=== PATIENT | female | born 1965 | race Caucasian/White ===

== ENCOUNTER 2017-06-09 16:44 | Emergency (ER) | payer OTHER, BC ==
[2017-06-09 16:50] VITALS: BP 134/95; PULSE 67; TEMP 98; BMI 29.7
[2017-06-09] MEDS ORDERED: hydrOXYzine PAMOATE 25 MG CAPSULE (FP) PO ONE ×2 (17:43→17:54)
[2017-06-09] MEDS ORDERED: KETOROLAC TROMETHAMINE 60 MG/2 ML VIAL IM ONE (17:43)
--- NOTE | 2017-06-09 17:44 | PDOC ---
History of Present Illness - General History Source: Patient Exam Limitations: No Limitations - History of Present Illness Initial Comments: 06/09/17 17:47 52 y/o F with a PMHx of thyroidectomy, hysterectomy presents to the ED with sharp low back pain today. Patient was at work and bent over to pick something up. She subsequently experienced sharp pain in her lower back. She took Advil with no relief. She denies similar pain in the past. She denies numbness, tingling. No other complaints. <Coby Thompson - Last Filed: 06/09/17 17:47> <Scottie Reynoso - Last Filed: 06/10/17 08:06> - General Chief Complaint: Pain, Acute Stated Complaint: low back pain Time Seen by Provider: 06/09/17 17:32 Past History <Coby Thompson - Last Filed: 06/09/17 17:47> - Past Medical History Thyroid Disease: Yes - Psycho/Social/Smoking Cessation Hx Anxiety: No Suicidal Ideation: No Smoking History: Never smoked Hx Alcohol Use: Yes Drug/Substance Use Hx: No Substance Use Type: Alcohol <Scottie Reynoso - Last Filed: 06/10/17 08:06> - Past Medical History Allergies/Adverse Reactions: Allergies Allergy/AdvReac Type Severity Reaction Status Date / Time No Known Allergies Allergy Unverified 06/09/17 16:46 Home Medications: Ambulatory Orders Cyclobenzaprine HCl [Flexeril] 10 mg PO TID #15 tablet 06/09/17 Escitalopram Oxalate [Lexapro -] 5 mg PO DAILY 06/09/17 Ketorolac Tromethamine [Toradol] 10 mg PO Q6H #20 tablet 06/09/17 Levothyroxine Sodium [Synthroid] 0 mcg PO DAILY 06/09/17 Review of Systems - Review of Systems Comments:: 06/09/17 17:48 CONSTITUTIONAL: Absent: fever, chills, fatigue EYES: Absent: visual changes ENT: Absent: ear pain, sore throat CARDIOVASCULAR: Absent: chest pain, palpitations RESPIRATORY: Absent: cough, SOB GI: Absent: abdominal pain, nausea, vomiting, constipation, diarrhea GENITOURINARY: Absent: dysuria, frequency, hematuria MUSCULOSKELETAL: (+) low back pain. Absent: arthralgia, myalgia SKIN: Absent: rash NEURO: Absent: headache <Coby Thompson - Last Filed: 06/09/17 17:47> *Physical Exam - Vital Signs Last Vital Signs Temp Pulse Resp BP Pulse Ox 98 F 67 18 134/95 98 06/09/17 16:45 06/09/17 16:45 06/09/17 16:45 06/09/17 16:45 06/09/17 16:45 - Physical Exam Comments: 06/09/17 17:48 BACK: paravertebral spasms bilateral at lumbosacral spine. No deformity. No visible or palpable inflammation. Straight leg raising negative. No distal sensory or motor deficit. Pulses full and symmetric. <Coby Thompson - Last Filed: 06/09/17 17:47> - Vital Signs Last Vital Signs Temp Pulse Resp BP Pulse Ox 98 F 67 18 134/95 98 06/09/17 16:45 06/09/17 16:45 06/09/17 16:45 06/09/17 16:45 06/09/17 16:45 <Scottie Reynoso - Last Filed: 06/10/17 08:06> Medical Decision Making - Medical Decision Making Patient much improved after medication. Pain has subsided and the patient is moving much more freely. Fully ambulatory and in minimal distress upon discharge with her , to follow-up as directed. <Scottie Reynoso - Last Filed: 06/10/17 08:06> *DC/Admit/Observation/Transfer - Attestations Scribe Attestion: 06/09/17 17:48 Documentation prepared by Coby Thompson, acting as manager medical writing for Scottie Miller MD. <Coby Thompson - Last Filed: 06/09/17 17:47> - Discharge Dispostion Admit: No <Scottie Reynoso - Last Filed: 06/10/17 08:06> Diagnosis at time of Disposition: Low back strain Qualifiers: Encounter type: initial encounter Qualified Code(s): S39.012A - Strain of muscle, fascia and tendon of lower back, initial encounter - Discharge Dispostion Condition at time of disposition: Stable - Prescriptions Prescriptions: Cyclobenzaprine HCl [Flexeril] 10 mg PO TID #15 tablet Ketorolac Tromethamine [Toradol] 10 mg PO Q6H #20 tablet - Referrals Referrals: Damián Huffman MD [Staff Physician] - 1 week - Patient Instructions Printed Discharge Instructions: DI for Low Back Pain - Post Discharge Activity Work/School Note: Back to Work
[2017-06-09] MEDS ORDERED: KETOROLAC TROMETHAMINE 60 MG/2 ML VIAL ONE (17:54)
== END 2017-06-09 18:38 ==
LOC: FER 16:44
CPT/HCPCS: 99282-25

== ENCOUNTER 2018-02-01 20:46 | Emergency (ER) | payer OTHER ==
[2018-02-01] MEDS ORDERED: ASPIRIN 81 MG CHEWABLE TABLETS PO ONE (21:00)
--- NOTE | 2018-02-01 21:00 | PDOC ---
Rapid Medical Evaluation Time Seen by Provider: 02/01/18 20:58 Medical Evaluation: Allergies Allergy/AdvReac Type Severity Reaction Status Date / Time No Known Allergies Allergy Unverified 06/09/17 16:46 02/01/18 20:59 I have performed a brief in-person evaluation of this patient. The patient presents with a chief complaint of: midsternal chest pain radiating to back since 5 pm today, put on norvasc 2 weeks, +palpitations, denies sob, swelling to legs Pertinent physical exam findings: well appearing, lungs ctab I have ordered the following: cardiac workup The patient will proceed to the ED for further evaluation. Discharge Disposition - Diagnosis Chest pain - Referrals - Patient Instructions - Post Discharge Activity
[2018-02-01 21:05] VITALS: BP 151/89; PULSE 85; TEMP 98.2; BMI 30.1
[2018-02-01] MEDS ORDERED: ASPIRIN 81 MG CHEWABLE TABLETS ONE (21:53)
[2018-02-01 22:33] LABS: BASO % 0.9 % (0-2.0); EOS % 6.1 % (0-4.5); HEMATOCRIT 37.8 % (32.4-45.2); HEMOGLOBIN 12.7 GM/dL (10.7-15.3); LYMPH % 24.9 % (8-40); MCH 29.5 pg (25.7-33.7); MCHC 33.7 g/dl (32.0-36.0); MEAN CELL VOLUME 87.4 fl (80-96); MEAN PLT VOLUME 8.1 fl (7.5-11.1); MONO % 8.4 % (3.8-10.2); NEUT % 59.7 % (42.8-82.8); PLATELET COUNT 311 K/MM3 (134-434); RBC 4.32 M/mm3 (3.60-5.2); RDW 14.4 % (11.6-15.6); WHITE BLOOD COUNT 7.2 K/mm3 (4.0-10.0)
[2018-02-01 22:43] LABS: INR 1.09 (0.82-1.09); PROTHROMBIN TIME (PATIENT) 12.3 SEC (9.98-11.88)
[2018-02-01 22:54] LABS: ALBUMIN 3.9 g/dl (3.4-5.0); ANION GAP 10 (8-16); BILIRUBIN,TOTAL 0.3 mg/dL (0.2-1.0); BLOOD UREA NITROGEN 16 mg/dL (7-18); CALCIUM 9.1 mg/dL (8.5-10.1); CHLORIDE 108 mmol/L (98-107); CO2 26 mmol/L (21-32); GLUCOSE,RANDOM 122 mg/dL (74-106); MAGNESIUM 2.1 mg/dL (1.8-2.4); POTASSIUM 3.9 mmol/L (3.5-5.1); SGOT/AST 49 U/L (15-37); SGPT/ALT 120 U/L (12-78); SODIUM 144 mmol/L (136-145); TOT PROT 8.7 g/dl (6.4-8.2)
[2018-02-01 22:57] LABS: ALK PHOS 178 U/L (45-117)
--- NOTE | 2018-02-02 02:09 | PDOC ---
History of Present Illness - General Chief Complaint: Pain Stated Complaint: CHEST PAIN Time Seen by Provider: 02/01/18 20:58 History Source: Patient Exam Limitations: No Limitations - History of Present Illness Initial Comments: CHIEF COMPLAINT: 52 y/o afebrile female with PMH HTN, TB (treated as a child), elevated liver enzymes (chronic with family hx of fatty liver) c/o chest pain radiating to her back today. HISTORY OF PRESENT ILLNESS: The patient states the pain came on suddenly, felt like pressure in her anterior chest and sharp pain in her back between her shoulder blades. She states the chest pain has subsided but she still has the back pain. She denies f/c, n/v/d, FLORES, cough, runny nose, SOB, jaw pain, left arm pain, abd pain, hematuria, recent travel, smoking history. She took 1 aspirin prior to coming to the ER. SHe informs me that she had a CXR done a few weeks ago which showed "something weird in the left lower lobe" and was given an RX for a CT scan of her chest but her insurance hasn't approved the scan yet. Vital signs on arrival are within normal limits. REVIEW OF SYSTEMS: GENERAL/CONSTITUTIONAL: No fever/chills. No weakness. No weight change. HEAD, EYES, EARS, NOSE AND THROAT: No change in vision. No ear pain or discharge. No sore throat. CARDIOVASCULAR: +CP. No shortness of breath. RESPIRATORY: No cough, wheezing, or hemoptysis. GASTROINTESTINAL: No abd pain, nausea, vomiting, diarrhea. GENITOURINARY: No dysuria, frequency, or change in urination. MUSCULOSKELETAL: +back pain. No joint or muscle swelling or pain. No neck pain. SKIN: No rash or easy bruising. NEUROLOGIC: No headache, vertigo, loss of consciousness, or loss of sensation. PHYSICAL EXAM: GENERAL: The patient is awake, alert, and fully oriented, in no acute distress. She is well appearing, ambulatory and pleasant. HEAD: Normal with no signs of trauma. ENT: Pupils equal, round and reactive to light, extraocular movements intact, sclera anicteric, conjunctiva clear. Neck supple. LUNGS: Clear to auscultation bilaterally. Normal excursion. No respiratory distress or use of accessory muscles. CV: RRR, S1/S2, no MRG. Cap refill < 2 sec. ABDOMEN: Soft, non-distended, non-tender even to deep palpation, no hepatomegaly or splenomegaly, no masses. EXTREMITIES: Normal range of motion, no edema. NEUROLOGICAL: Normal speech, normal gait. CN II-XII grossly intact. PSYCH: Normal mood, normal affect. SKIN: Warm, dry, normal turgor, no rashes or lesions noted. Past History - Past Medical History Allergies/Adverse Reactions: Allergies Allergy/AdvReac Type Severity Reaction Status Date / Time No Known Allergies Allergy Verified 02/01/18 21:02 Home Medications: Ambulatory Orders Cyclobenzaprine HCl [Flexeril] 10 mg PO TID #15 tablet 06/09/17 Escitalopram Oxalate [Lexapro -] 5 mg PO DAILY 06/09/17 Ketorolac Tromethamine [Toradol] 10 mg PO Q6H #20 tablet 06/09/17 Levothyroxine Sodium [Synthroid] 0 mcg PO DAILY 06/09/17 COPD: No HTN: Yes Thyroid Disease: Yes (Hypothyroid) - Suicide/Smoking/Psychosocial Hx Smoking History: Never smoked Have you smoked in the past 12 months: No Information on smoking cessation initiated: No Hx Alcohol Use: No Drug/Substance Use Hx: No Substance Use Type: Alcohol *Physical Exam - Vital Signs Last Vital Signs Temp Pulse Resp BP Pulse Ox 98.2 F 85 20 151/89 100 02/01/18 21:02 02/01/18 21:02 02/01/18 21:02 02/01/18 21:02 02/01/18 21:02 Heart Score/ECG Review - ECG Intrepretation Comment:: Twelve-lead EKG was performed and reviewed by Dr. Connors. There is normal sinus rhythm with a normal rate. The axis is normal. The intervals are normal. There are no ST or T wave abnormalities. Impression: Normal twelve-lead EKG ED Treatment Course - LABORATORY CBC & Chemistry Diagram: 02/01/18 22:09 02/01/18 22:09 - ADDITIONAL ORDERS Additional order review: Laboratory Results 02/02/18 02/01/18 02/01/18 03:33 22:09 22:09 PT with INR INR Sodium 144 Potassium 3.9 Chloride 108 H Carbon Dioxide 26 Anion Gap 10 BUN 16 Creatinine 1.0 Creat Clearance w eGFR 58.22 Random Glucose 122 H Calcium 9.1 Magnesium 2.1 Total Bilirubin 0.3 AST 49 H ALT 120 H Alkaline Phosphatase 178 H Creatine Kinase 47 57 Troponin I < 0.02 < 0.02 Total Protein 8.7 H Albumin 3.9 TSH 3.92 H 02/01/18 22:09 PT with INR 12.30 H INR 1.09 Sodium Potassium Chloride Carbon Dioxide Anion Gap BUN Creatinine Creat Clearance w eGFR Random Glucose Calcium Magnesium Total Bilirubin AST ALT Alkaline Phosphatase Creatine Kinase Troponin I Total Protein Albumin TSH 02/01/18 22:09 RBC 4.32 MCV 87.4 MCHC 33.7 RDW 14.4 MPV 8.1 Neutrophils % 59.7 Lymphocytes % 24.9 Monocytes % 8.4 Eosinophils % 6.1 H Basophils % 0.9 - RADIOLOGY Radiology Studies Ordered: Category Date Time Status CHEST CTA [CT] Stat CT Scan 02/02/18 01:59 Taken - Medications Given in the ED: ED Medications Discontinued Medications Generic Name Dose Route Start Last Admin Trade Name Freq PRN Reason Stop Dose Admin Aspirin 162 mg 02/01/18 21:00 02/01/18 21:54 Asa - PO 02/01/18 21:01 162 mg ONCE ONE Administration Medical Decision Making - Medical Decision Making A/P: 52 y/o afebrile female with chest pressure that radiates to her back today. Plan is as follows: 1. EKG 2. Labs 3. CXR 4. CTA chest CTA IMPRESSION: 5mm subpleural noduleleft lower lobe, advise follow up. No PE. No aortic dissection or aneurysm. No pneumonia or pleural effusion. Will draw 2nd trop. if negative will discharge to home with cardio and pulmonary follow up. 2nd trop negative. Gave patient all of her results. Gave referral to cardio and pulmonary. Instructed her to return to the ER with any worsening or concerning symptoms. The patient verbalizes understanding of all instructions, has no further questions and is awaiting discharge. *DC/Admit/Observation/Transfer Diagnosis at time of Disposition: Chest pain Qualifiers: Chest pain type: unspecified Qualified Code(s): R07.9 - Chest pain, unspecified - Discharge Dispostion Disposition: HOME Condition at time of disposition: Good - Referrals Referrals: Cisco Fan MD [Primary Care Provider] - Dallas Pretty MD [Staff Physician] - Kendall Azar MD, MD [Staff Physician] - - Patient Instructions Printed Discharge Instructions: DI for Atypical Chest Pain, DI for Chest Pain Additional Instructions: Discharge Instructions: -The Cat Scan of your chest showed a 5mm subpleural nodule left lower lobe -all other tests were normal -Please follow up with your doctor and 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 - Post Discharge Activity
--- NOTE | 2018-02-02 13:39 | EKG ---
Test Reason : Blood Pressure : / mmHG Vent. Rate : 078 BPM Atrial Rate : 078 BPM P-R Int : 210 ms QRS Dur : 088 ms QT Int : 392 ms P-R-T Axes : 058 -13 039 degrees QTc Int : 446 ms SINUS RHYTHM WITH 1ST DEGREE A-V BLOCK POSSIBLE LEFT ATRIAL ENLARGEMENT BORDERLINE ECG NO PREVIOUS ECGS AVAILABLE Confirmed by TIFFANIE MARLEY MD ([id number]) on 02/02/2018 1:39:19 PM Referred By: Confirmed By:TIFFANIE MARLEY MD
== END 2018-02-02 05:44 | disposition home or self-care (01) ==
LOC: JER 20:46
DX: R07.89 Other chest pain (principal); I10 Essential (primary) hypertension; K76.0 Fatty (change of) liver, not elsewhere classified; Z86.11 Personal history of tuberculosis
CPT/HCPCS: 36415; 71046-TC-FY; 71275-TC; 80053; 82550; 83735; 84443; 84484; 85025; 85610; 93005; 93010; 99283-25

== ENCOUNTER 2018-12-27 18:04 | Day surgery (SDC) | payer OTHER ==
--- NOTE | 2018-12-27 11:27 | PDOC ---
History of Present Illness - General Chief Complaint: Pain, Acute Stated Complaint: ABD PAIN Time Seen by Provider: 12/27/18 10:55 - History of Present Illness Initial Comments: 12/27/18 11:29 53 yo F with h/o HTN who p/w RUQ/epigastria abdominal pain, vomitting, palpitations. Patient reprots acute onset of abdominal pain this AM at approximately 0500. States that she was laying in left lateral position and felt sudden onset of sharp, epigastric pain, with retrosternal and right shoulder radiation, of sudden onset with no identifiable triggers or allevaitors. Not alleviated with OTC Zantac. Reports h/o similiar pain x 1 week ago, but remitting after seconds. Pain now siightly improved. Asx. with one episode of NBNB emesis, palpitations, and SOB. Normal bowel habits. Patient was told that she may have gallbladder "issues." Was advised to have cholecystectomy in past. Denies recent travel or change in diet. Last meal 700 pm (12/26/18). Patient denies FLORES, vision change, cough, wheezing, orthopena, PND, leg swelling/ pain, N/V, F,C, CP, urinary complaints, hematuria, BPR, abdominal pain, diarrhea , constipation, lightheadedness, weakness, sensory changes. PMHx: as noted above. H/o nml colonoscopy and endsocopy x 1 year ago. Denies h/ o ACS/[place], stent placement, abnml stress testinig, CABG, DVT/PE Surgical: Hysterectomy ROS: as noted SHx: Denies IVDA Allergies: NKDA GI: Dr. Tad Witt. Past History - Past Medical History Allergies/Adverse Reactions: Allergies Allergy/AdvReac Type Severity Reaction Status Date / Time No Known Allergies Allergy Verified 12/27/18 10:54 Home Medications: Ambulatory Orders Levothyroxine Sodium [Synthroid] 112 mcg PO DAILY 06/09/17 Amlodipine Besylate [Norvasc -] 5 mg PO DAILY 12/27/18 Ranitidine HCl [Zantac] 150 mg PO DAILY 12/27/18 COPD: No HTN: Yes Thyroid Disease: Yes (Hypothyroid) - Suicide/Smoking/Psychosocial Hx Smoking History: Never smoked Have you smoked in the past 12 months: No Hx Alcohol Use: No Drug/Substance Use Hx: No Substance Use Type: Alcohol Review of Systems - Review of Systems Comments:: 12/27/18 12:34 GENERAL/CONSTITUTIONAL: No fever or chills. No weakness. HEAD, EYES, EARS, NOSE AND THROAT: No change in vision. No ear pain or discharge. No sore throat. CARDIOVASCULAR: No chest pain or shortness of breath RESPIRATORY: No cough, wheezing, or hemoptysis. GASTROINTESTINAL:+ Abdominal pain, nausea, vomiting. No diarrhea or constipation. GENITOURINARY: No dysuria, frequency, or change in urination. MUSCULOSKELETAL: No joint or muscle swelling or pain. No neck or back pain. SKIN: No rash NEUROLOGIC: No headache, vertigo, loss of consciousness, or change in strength/ sensation. ENDOCRINE: No increased thirst. No abnormal weight change HEMATOLOGIC/LYMPHATIC: No anemia, easy bleeding, or history of blood clots. ALLERGIC/IMMUNOLOGIC: No hives or skin allergy. *Physical Exam - Vital Signs Last Vital Signs Temp Pulse Resp BP Pulse Ox 97.7 F 72 16 138/87 100 12/27/18 10:53 12/27/18 10:53 12/27/18 10:53 12/27/18 10:53 12/27/18 10:53 - Physical Exam Comments: 12/27/18 12:34 GENERAL: Awake, alert, and fully oriented, in no acute distress HEAD: No signs of trauma, normocephalic, atraumatic EYES: PERRLA, EOMI, sclera anicteric, conjunctiva clear ENT: Hearing grossly normal, nares patent, oropharynx clear without exudates. Moist mucosa NECK: Normal ROM, supple, no lymphadenopathy, JVD, or masses LUNGS: No distress, speaks full sentences, clear to auscultation bilaterally HEART: Regular rate and rhythm, normal S1 and S2, no murmurs, rubs or gallops, peripheral pulses normal and equal bilaterally. ABDOMEN: + RUQ/Epigastirc ttp. Soft, NDS, normoactive bowel sounds. No guarding , no rebound. No masses EXTREMITIES : Normal inspection, Normal range of motion, no edema. No clubbing or cyanosis. NEUROLOGICAL: Cranial nerves II through XII grossly intact. Normal speech, normal gait, no focal sensorimotor deficits SKIN: Warm, Dry, normal turgor, no rashes or lesions noted Moderate Sedation - Procedure Monitoring Vital Signs: Procedure Monitoring Vital Signs Temperature 97.7 F 12/27/18 10:53 Pulse Rate 72 12/27/18 10:53 Respiratory Rate 16 12/27/18 10:53 Blood Pressure 138/87 12/27/18 10:53 O2 Sat by Pulse Oximetry (%) 100 12/27/18 10:53 ED Treatment Course - LABORATORY CBC & Chemistry Diagram: 12/27/18 11:59 12/27/18 11:33 - ADDITIONAL ORDERS Additional order review: 12/27/18 14:10 [facility] Name: [facility] DEPARTMENT OF RADIOLOGY Phys: Karri Isabel RESIDENT : 1965 Age: 53 Sex: F [facility] Acct: [id number] Loc: FM/S [address] [place] [address]. Exam Date: 12/27/18 Status: [place] [address] Unit Number: [id number] EXAM#: TYPE/EXAM: RESULT: [id number] US/ABDOMEN US -LIMITED HISTORY PROVIDED: Abdominal pain. Real time examination of the abdomen demonstrates the following: The gallbladder is normal in size and does contain a calculus within the neck of the gallbladder. The snapper on reports a positive Almaraz's sign, and if acute cholecystitis is clinically indicated , a follow-up HIDA scan may be warranted. There is no evidence of intra or extrahepatic biliary duct dilatation. The liver is normal in size. It is hyperechoic in texture consistent with diffuse fatty infiltration. No discrete intrahepatic masses are identified. Hepatopedal flow is documented within the main portal vein. The pancreas is poorly visualized due to overlying bowel gas. There is no evidence of hydronephrosis or acute abnormalities of the right kidney. There is no evidence of AAA. The IVC is patent. IMPRESSION: 1. Cholelithiasis with positive Almaraz's sign. If acute cholecystitis is clinically indicated, a follow-up HIDA scan may be warranted. 2. Diffuse fatty infiltration of the liver. Please see above discussion. Reported By: Bishnu Cheema MD 12/27/18 1404 Technologist: Nichol Laguna Transcribed Date/Time: 12/27/181403 Lehr Stripper: Bishnu Cheema Printed Date/Time: By: Medical Decision Making - Medical Decision Making 12/27/18 12:35 53 yo F with h/o HTN who p/w RUQ/epigastria abdominal pain radiating to R shoulder, vomitting, palpitations x 1 day.Vitals wnl, AF, A&Ox3. Physical exam notable for RUQ/epigastria ttp. ACS/[place] r/o. Low risk PE based on Weils criteria. Will consider biliary colic/dz. cholecysttitis, pancreatitis, gastritis, gastroenteritis, colitis, pleural effusion. Will provide adequate analgesia, IVF resuscitation, antiemetic control and reassess. ED Course: CBC, CMP: Unremakrable Lipase: Neg 12/27/18 13:36 CXR: Unremarkable Patient endorsed to Dr. Rider by Dr. Stephens. Plan to admit for cholecystectomy. 12/27/18 13:38 Patient admitted to medicine. Endorsed to medicine. Probable cholecystitis 12/27/18 14:10 RUQ U/S: IMPRESSION: 1. Cholelithiasis with positive Almaraz's sign. If acute cholecystitis is clinically indicated, a follow-up HIDA scan may be warranted. 2. Diffuse fatty infiltration of the liver. Please see above discussion. Reported By: Bishnu Cheema MD 12/27/18 1404 *DC/Admit/Observation/Transfer Diagnosis at time of Disposition: Epigastric pain, Symptomatic cholelithiasis - Discharge Dispostion Condition at time of disposition: Fair Decision to Admit order: Yes - Referrals - Patient Instructions - Post Discharge Activity
--- NOTE | 2018-12-27 11:40 | PDOC ---
Attending Attestation - Resident Resident Name: Karri Isabel - ED Attending Attestation I have performed the following: I have examined & evaluated the patient, The case was reviewed & discussed with the resident, I agree w/resident's findings & plan, Exceptions are as noted - HPI HPI: 12/27/18 11:53 53yo female presents with acute onset of epigastric/RUQ pain that radiates to her R shoulder. Pt states pain is sharp. Pt states pain is associated with n/v. States hx of constipation - follows with Dr. Witt GI - on metamucil and colace - denies diarrhea. No blood in vomitus or stool. No bile in vomitus. No f/c. States she ate chicken cutlet and salad last night. Pt denies f/c. Pt with pain to RUQ. +nausea now. 12/27/18 11:55 Dr. Fan is PMD Dr. Witt is GI - Physicial Exam PE: 12/27/18 11:54 Gen: aaox3, nad heart: +s1s2 reg lungs: cta b/l abd: soft, ttp RUQ, +murphys, +epigastric ttp, +bs, nondistended ext: no c/c/e - Medical Decision Making 12/27/18 11:40 I, Dr. Saundra Stephens, DO, attest that this document has been prepared under my direction and personally reviewed by me in its entirety. I further attest, that it accurately reflects all work, treatment, procedures and medical decision -making performed by me. 12/27/18 11:55 a/p: 53yo female with RUQ pain and n/v -pt was dx with gallstones but did not undergo cholecystectomy a year ago -pain to RUQ with radiation to the R shoulder assoc with n/v - suspect biliary colic vs acute cholecystitis -pt is afebrile -will hydrate, npo, zofran for nausea -will send labs, lipase, abd ultrasound to [facility] for acute magy -will monitor and reassess 12/27/18 12:52 cxr clear 12/27/18 13:09 pt still with ruq pain and nausea pain during the ultrasound gallstone in the gallbladder case discussed with Dr. Rider - pt states multiple episodes of abd pain and nausea with eating since last year Dr. Rider requests medicine admit and consult to him, NPO after midnight schedule for sx tomorrow 12/27/18 13:13 Dr. Fan is covered by the hospitalist service microblog sent to [facility] 12/27/18 13:36 case discussed with Peg from [facility] who accepts pt to service 12/27/18 14:07 cholelithiasis and +sonographic murphys - given abx *DC/Admit/Observation/Transfer Diagnosis at time of Disposition: Epigastric pain, Symptomatic cholelithiasis - Discharge Dispostion Condition at time of disposition: Fair Decision to Admit order: Yes - Referrals - Patient Instructions - Post Discharge Activity Heart Score/ECG Review - ECG Intrepretation Comment:: 12/27/18 11:52 sinus at 61, nl axis, nl interval, no acute st/t wave findings
[2018-12-27 12:03] LABS: BASO % 0.2 % (0-2.0); EOS % 2.6 % (0-4.5); HEMATOCRIT 37.7 % (32.4-45.2); HEMOGLOBIN 12.4 GM/dl (10.7-15.3); MCH 29.2 pg (25.7-33.7); MCHC 32.9 g/dl (32.0-36.0); MEAN CELL VOLUME 88.7 fl (80-96); MEAN PLT VOLUME 7.7 fl (7.5-11.1); MONO % 3.2 % (3.8-10.2); PLATELET COUNT 302 K/MM3 (134-434); RBC 4.26 M/mm3 (3.60-5.2); RDW 12.6 % (11.6-15.6); WHITE BLOOD COUNT 8.4 K/mm3 (4.0-10.8)
[2018-12-27 12:19] LABS: ALBUMIN 3.9 g/dl (3.4-5.0); ALK PHOS 95 U/L (45-117); ANION GAP 5 MMOL/L (8-16); BILIRUBIN,TOTAL 0.4 mg/dl (0.2-1); BLOOD UREA NITROGEN 19 mg/dl (7-18); CHLORIDE 103 mmol/L (98-107); CO2 26 mmol/L (21-32); CREATININE 0.9 mg/dl (0.55-1.3); GLUCOSE,RANDOM 114 mg/dl (74-106); POTASSIUM 4.7 mmol/L (3.5-5.1); SGOT/AST 22 U/L (15-37); SGPT/ALT 35 U/L (13-61); SODIUM 134 mmol/L (136-145)
[2018-12-27 12:33] LABS: ACTIVATED PTT 28.3 SECONDS (25.2-36.5)
[2018-12-27 12:38] LABS: INR 1.06 (0.82-1.09); PROTHROMBIN TIME (PATIENT) 11.8 SEC (10.2-13.0)
[2018-12-27 13:35] LABS: LIPASE 254 U/L (73-393)
--- NOTE | 2018-12-27 13:36 | HP ---
CHIEF COMPLAINT: RUQ pain, vomiting PCP: Dr. Fan GI: Dr. Tad Witt HISTORY OF PRESENT ILLNESS: 53 year-old female with a PMH significant for HTN. Presented to the ED today with complaints of RUQ/epigastric abdominal pain, vomiting, and palpitations. At about 0500 this morning patient was laying in left lateral position and felt sudden onset of sharp, epigastric pain, with retrosternal and right shoulder radiation. Also had one episode of vomiting. Pain was not relieved with OTC Zantac. Had similar episode of pain x 1 week ago which resolved after a few seconds. Bowel habits have been normal. Patient has been told in past she had gallbladder issues and was recommended to have cholecystectomy which patient declined. Last meal was on 12/26/18 at 1900 pm. Denies fever, sweats, chills. ER course was notable for: (1) US abdomen: cholelithiasis with +Almaraz's sign; diffuse fatty liver (2) afebrile, no leukocytosis (3) NS x 1L; Zofran x 1; ceftriaxone x 1; pepcid x 1 Recent Travel: No PAST MEDICAL HISTORY: Hypertension Tuberculosis (treated as a child) Fatty liver PAST SURGICAL HISTORY: Thyroidectomy Hysterectomy Social History: Smoking: never Alcohol: Drugs: Family History: family history of fatty liver disease Allergies No Known Allergies Allergy (Verified 12/27/18 10:54) HOME MEDICATIONS: Home Medications Medication Instructions Recorded Levothyroxine Sodium [Synthroid] 112 mcg PO DAILY 06/09/17 Amlodipine Besylate [Norvasc -] 5 mg PO DAILY 12/27/18 Ranitidine HCl [Zantac] 150 mg PO DAILY 12/27/18 REVIEW OF SYSTEMS CONSTITUTIONAL: Absent: fever, chills, diaphoresis, generalized weakness, malaise, loss of appetite, weight change HEENT: Absent: rhinorrhea, nasal congestion, throat pain, throat swelling, difficulty swallowing, mouth swelling, ear pain, eye pain, visual changes CARDIOVASCULAR: Absent: chest pain, syncope, palpitations, irregular heart rate, lightheadedness , peripheral edema RESPIRATORY: Absent: cough, shortness of breath, dyspnea with exertion, orthopnea, wheezing, stridor, hemoptysis GASTROINTESTINAL: +abdominal pain, nausea, vomiting Absent: abdominal distension, diarrhea, constipation, melena, hematochezia GENITOURINARY: Absent: dysuria, frequency, urgency, hesitancy, hematuria, flank pain, genital pain MUSCULOSKELETAL: Absent: myalgia, arthralgia, joint swelling, back pain, neck pain SKIN: Absent: rash, itching, pallor HEMATOLOGIC/IMMUNOLOGIC: Absent: easy bleeding, easy bruising, lymphadenopathy, frequent infections ENDOCRINE: Absent: unexplained weight gain, unexplained weight loss, heat intolerance, cold intolerance NEUROLOGIC: Absent: headache, focal weakness or paresthesias, dizziness, unsteady gait, seizure, mental status changes, bladder or bowel incontinence PSYCHIATRIC: Absent: anxiety, depression, suicidal or homicidal ideation, hallucinations. PHYSICAL EXAMINATION Vital Signs - 24 hr 12/27/18 10:53 Temperature 97.7 F Pulse Rate 72 Respiratory 16 Rate Blood Pressure 138/87 O2 Sat by Pulse 100 Oximetry (%) GENERAL: Awake, alert, and fully oriented, in no acute distress. HEAD: Normal with no signs of trauma. EYES: Pupils equal, round and reactive to light, extraocular movements intact, sclera anicteric, conjunctiva clear. No lid lag. EARS, NOSE, THROAT: Ears normal, nares patent, oropharynx clear without exudates. Moist mucous membranes. NECK: Normal range of motion, supple without lymphadenopathy, JVD, or masses. LUNGS: Breath sounds equal, clear to auscultation bilaterally. No wheezes, and no crackles. No accessory muscle use. HEART: Regular rate and rhythm, normal S1 and S2 without murmur, rub or gallop. ABDOMEN: Soft, nontender, not distended, normoactive bowel sounds, no guarding, no rebound, no masses. No hepatomegaly or splenomegaly. MUSCULOSKELETAL: Normal range of motion at all joints. No bony deformities or tenderness. No CVA tenderness. UPPER EXTREMITIES: 2+ pulses, warm, well-perfused. No cyanosis. No clubbing. No peripheral edema. LOWER EXTREMITIES: 2+ pulses, warm, well-perfused. No calf tenderness. No peripheral edema. NEUROLOGICAL: Cranial nerves II-XII intact. Normal speech. Normal gait. PSYCHIATRIC: Cooperative. Good eye contact. Appropriate mood and affect. SKIN: Warm, dry, normal turgor, no rashes or lesions noted, normal capillary refill. Laboratory Results - last 24 hr 12/27/18 12/27/18 12/27/18 11:33 11:56 11:59 WBC RBC Hgb Hct MCV MCH MCHC RDW Plt Count MPV Absolute Neuts (auto) Neutrophils % Lymphocytes % Monocytes % Eosinophils % Basophils % PT with INR 11.8 INR 1.06 PTT (Actin FS) 28.3 Sodium 134 L Potassium 4.7 Chloride 103 Carbon Dioxide 26 Anion Gap 5 L BUN 19 H Creatinine 0.9 Creat Clearance w eGFR > 60 Random Glucose 114 H Calcium 9.0 Total Bilirubin 0.4 AST 22 ALT 35 Alkaline Phosphatase 95 Creatine Kinase 57 Troponin I Total Protein 8.0 Albumin 3.9 Lipase 254 Blood Type Antibody Screen 12/27/18 12/27/18 12/27/18 11:59 11:59 11:59 WBC 8.4 RBC 4.26 Hgb 12.4 Hct 37.7 MCV 88.7 MCH 29.2 MCHC 32.9 RDW 12.6 Plt Count 302 MPV 7.7 Absolute Neuts (auto) 7.1 Neutrophils % 84.0 H Lymphocytes % 10.0 Monocytes % 3.2 L Eosinophils % 2.6 Basophils % 0.2 PT with INR INR PTT (Actin FS) Sodium Potassium Chloride Carbon Dioxide Anion Gap BUN Creatinine Creat Clearance w eGFR Random Glucose Calcium Total Bilirubin AST ALT Alkaline Phosphatase Creatine Kinase Troponin I < 0.03 Total Protein Albumin Lipase Blood Type Cancelled Antibody Screen Cancelled ASSESSMENT/PLAN 53 year-old female with a PMH significant for HTN. Admitted for acute cholecystitis. Symptomatic cholelithiasis Biliary colic --US abdomen: cholelithiasis, calculus within the neck of the gallbladder, + limnology teacher's Almaraz's sign --has had previous episodes of biliary colic with LFT abnormalities (01/2018) , patient declined surgery at that time --no evidence of intra or extrahepatic duct dilitation, LFTs wnl --afebrile, no leukocytosis, lipase wnl --plan is to OR in am with Dr. Rider Hypertension --presently normotensive --hold PO amlodipine Hypothyroidism --hold PO levothyroxine FEN Fluids: D5NS@100mL/hr Electrolytes: replete as indicated Nutrition: NPO DVT prophylaxis: SCDs, oob, ambulation Dispo: continues to require inpatient care. Visit type - Emergency Visit Emergency Visit: Yes Care time: The patient presented to the Emergency Department on the above date and was hospitalized for further evaluation of their emergent condition. - New Patient This patient is new to me today: Yes Date on this admission: 12/28/18 - Critical Care Critical Care patient: No
[2018-12-27 15:15] VITALS: BMI 28.8
[~2018-12-27 18:04] MED LIST: ACETAMINOPHEN 325 MG TABLET (FP) PO PRN; CEFTRIAXONE 1 GM in DEXTROSE 5%-WATER - 100 ML IVPB ONE; DEXTROSE 5%-NORMAL SALINE 1,000 ML IV SCH; FAMOTIDINE 20 MG/50 ML IVPB 20 MG/50 ML MG IVPB ONE; MAG HYDROX/AL HYDROX/SIMETH 30 ML UNIT-DOSE CUP PO ONE; ONDANSETRON 4 MG/2 ML VIAL IVPUSH ONE; ONDANSETRON 4 MG/2 ML VIAL IVPUSH PRN; ONDANSETRON 4 MG/2 ML VIAL ONE; SODIUM CHLORIDE 1,000 ML IV STA; SUCRALFATE 1 GM TABLET (FP) PO ONE; cefTRIAXone SODIUM 1 GM VIAL ONE; morphine CARPU-JECT 2 MG/1 ML DISP.SYRIN IVPUSH PRN
[2018-12-28 05:44] LABS: BASO % 0.7 % (0-2.0); EOS % 5.9 % (0-4.5); LYMPH % 34.2 % (8-40); MCH 29.8 pg (25.7-33.7); MCHC 34.2 g/dl (32.0-36.0); MEAN PLT VOLUME 7.9 fl (7.5-11.1); MONO % 6.5 % (3.8-10.2); NEUT % 52.7 % (42.8-82.8); PLATELET COUNT 250 K/MM3 (134-434); RBC 4.03 M/mm3 (3.60-5.2); RDW 13.6 % (11.6-15.6); WHITE BLOOD COUNT 4.6 K/mm3 (4.0-10.0)
[2018-12-28 06:03] LABS: ANION GAP 6 MMOL/L (8-16); BLOOD UREA NITROGEN 10 mg/dL (7-18); CHLORIDE 109 mmol/L (98-107); CO2 25 mmol/L (21-32); GLUCOSE,RANDOM 95 mg/dL (74-106); SODIUM 139 mmol/L (136-145)
[2018-12-28 06:22] LABS: ALBUMIN 3.2 g/dl (3.4-5.0); BILIRUBIN,DIRECT 0.1 mg/dL (0.0-0.2); BILIRUBIN,TOTAL 0.3 mg/dL (0.2-1); TOT PROT 8.1 g/dl (6.4-8.2)
[2018-12-28] MEDS ORDERED: fentaNYL CITRATE 250 MCG/5 ML VIAL ONE (06:48)
[2018-12-28] MEDS ORDERED: ROCURONIUM BROMIDE 50 MG/5 ML VIAL ONE ×2 (06:48→07:35)
[2018-12-28] MEDS ORDERED: FLUMAZENIL 0.5 MG/5 ML VIAL ONE (06:48)
[2018-12-28] MEDS ORDERED: MIDAZOLAM HCL 2 MG/2 ML SINGLE DOSE VIAL ONE (06:49)
[2018-12-28] MEDS ORDERED: oxyCODONE HCL 5 MG TABLET PO PRN (07:24)
[2018-12-28] MEDS ORDERED: LACTATED RINGERS SOLUTION 1,000 ML IV SCH (07:30)
[2018-12-28] MEDS ORDERED: LIDOCAINE HCL/PF 2% SDV 5ML VIAL ONE (07:35)
[2018-12-28] MEDS ORDERED: PROPOFOL 20 ML ONE (07:35)
[2018-12-28] MEDS ORDERED: ceFAZolin SODIUM 1 GM VIAL ONE (07:53)
[2018-12-28] MEDS ORDERED: BUPIVACAINE HCL 0.25% 125 MG/50 ML VIAL ONE (08:01)
[2018-12-28] MEDS ORDERED: DEXAMETHASONE SOD PHOSPHATE 4 MG/1 ML VIAL ONE (08:06)
[2018-12-28] MEDS ORDERED: ONDANSETRON 4 MG/2 ML VIAL ONE ×2 (08:06→08:44)
[2018-12-28] MEDS ORDERED: GLYCOPYRROLATE 0.2 MG/1 ML VIAL ONE (08:39)
[2018-12-28] MEDS ORDERED: NEOSTIGMINE METHYLSULFATE 0.5 MG/ML - 10 ML MDV ONE (08:39)
[2018-12-28] MEDS ORDERED: BUPIVACAINE HCL/PF 2.5 MG/ML - 30 ML VIAL IJ ONE (08:41)
[2018-12-28] MEDS ORDERED: KETOROLAC TROMETHAMINE 30 MG/1 ML VIAL ONE (08:44)
--- NOTE | 2018-12-28 09:14 | OP ---
Operative Note - Note: Operative Date: 12/28/18 Pre-Operative Diagnosis: Symptomatic cholethiasis Operation: Laparoscopic cholecystectomy Findings: as dictated Post-Operative Diagnosis: Same as Pre-op Surgeon: Faraz Rider Tool Engineer: Marianela Jose Anesthesiologist/GROUNDS FOREMAN: Taco Funes Anesthesia: General, Local (15cc .25% Marcaine injected to incision sites at time of closure ) Specimens Removed: Gallbladder Estimated Blood Loss (mls): 5 (ml) Fluid Volume Replaced (mls): 900 (ml LR) Operative Report Dictated: Yes
--- NOTE | 2018-12-28 09:15 | SURG ---
Surgery Almond Blancher Operator Note Almond Blancher Operator: Marianela Jose PA-C (Suzy) Date of Service: 12/28/18 Diagnosis: Symptomatic cholethiasis Procedure: Laparoscopic cholecystectomy I was present for the entirety of the operative procedure. For further detail, please refer to operative report. Visit type - Case Type Case Type: Scheduled - Emergency Emergency Visit: No - New patient This patient is new to me today: Yes Date on this admission: 12/28/18 - Critical Care Critical Care patient: No
[2018-12-28] MEDS ORDERED: BISACODYL 5 MG TABLET.DR (FP) PO PRN (10:00)
[2018-12-28] MEDS ORDERED: POLYETHYLENE GLYCOL 3350 119 GM BTL PO SCH (10:00)
--- NOTE | 2018-12-28 10:10 | EKG ---
Test Reason : Blood Pressure : / mmHG Vent. Rate : 061 BPM Atrial Rate : 061 BPM P-R Int : 196 ms QRS Dur : 072 ms QT Int : 440 ms P-R-T Axes : 046 007 019 degrees QTc Int : 442 ms NORMAL SINUS RHYTHM NORMAL ECG WHEN COMPARED WITH ECG OF 01-FEB-2018 21:16, NONSPECIFIC T WAVE ABNORMALITY NO LONGER EVIDENT IN ANTERIOR LEADS Confirmed by DONELL COBURN, TIFFANIE ([id number]) on 12/28/2018 10:10:27 AM Referred By: Dallas Caruso Confirmed By:TIFFANIE MARLEY MD
--- NOTE | 2018-12-28 11:46 | CONSULT ---
- Consultation REQUESTING PROVIDER: Angelo CARVER CONSULT REQUEST: We have been asked to surgically evaluate this patient for ( specify). PCP:Ester Mcleod HISTORY OF PRESENT ILLNESS: RUQ pain w/nausea and vomiting started day of admission; she is 53 years old and has known cholelithiasis; she came to the ER for evaluation; she has no dark urine or light stools and no other GI c/o e/f GERD. PMHx: thyroid disease; hypertension PSHx: lap HARRISON Home Medications Medication Instructions Recorded Levothyroxine Sodium [Synthroid] 112 mcg PO DAILY 06/09/17 Amlodipine Besylate [Norvasc -] 5 mg PO DAILY 12/27/18 Ranitidine HCl [Zantac] 150 mg PO DAILY 12/27/18 Tramadol HCl 50 mg PO Q6H PRN #30 tablet MDD 4 12/28/18 Allergies Allergy/AdvReac Type Severity Reaction Status Date / Time No Known Allergies Allergy Verified 12/27/18 10:54 REVIEW OF SYSTEMS: CONSTITUTIONAL: Absent: fever, chills, diaphoresis, generalized weakness, malaise, loss of appetite, weight change CARDIOVASCULAR: Absent: chest pain, syncope, palpitations, irregular heart rate, lightheadedness , peripheral edema RESPIRATORY: Absent: cough, shortness of breath, dyspnea with exertion, wheezing, stridor, hemoptysis GASTROINTESTINAL: Absent: abdominal pain, abdominal distension, nausea, vomiting, diarrhea, constipation, melena, hematochezia GENITOURINARY: Absent: dysuria, frequency, urgency, hesitancy, hematuria, flank pain, genital pain MUSCULOSKELETAL: Absent: myalgia, arthralgia, joint swelling, back pain, neck pain SKIN: Absent: rash, itching, pallor HEMATOLOGIC/IMMUNOLOGIC: Absent: easy bleeding, easy bruising, lymphadenopathy NEUROLOGIC: Absent: headache, focal weakness, paresthesias, dizziness, unsteady gait, seizure, mental status changes, bladder or bowel incontinence PSYCHIATRIC: Absent: anxiety, depression, suicidal or homicidal ideation, hallucinations. PHYSICAL EXAM: GENERAL: Awake, alert, and fully oriented, in no acute distress. HEAD: Normal with no signs of trauma. EYES: PERRL, sclera anicteric, conjunctiva clear. NECK: Normal ROM, supple without lymphadenopathy, JVD, or masses. ABDOMEN: Soft, tender RUQ/epigastrium, not distended, normoactive bowel sounds, no guarding, no rebound, no masses. No organomegaly. No hernias. MUSCULOSKELETAL: Normal ROM at all joints. No bony deformities or tenderness. No CVA tenderness. UPPER EXTREMITIES: 2+ pulses, warm, well-perfused. No cyanosis. Cap refill <2 seconds. No peripheral edema. LOWER EXTREMITIES: 2+ pulses, warm, well-perfused. No calf tenderness. No peripheral edema. NEUROLOGICAL: Normal speech, gait not observed. PSYCH: Cooperative. Good eye contact. Appropriate mood and affect. SKIN: Warm, dry, normal turgor, no rashes or lesions noted. Vital Signs Temperature 97.6 F 12/28/18 10:00 Pulse Rate 80 12/28/18 10:00 Respiratory Rate 18 12/28/18 10:00 Blood Pressure 115/78 12/28/18 10:00 O2 Sat by Pulse Oximetry (%) 99 12/28/18 09:50 Lab Results WBC 4.6 K/mm3 (4.0-10.0) 12/28/18 05:30 RBC 4.03 M/mm3 (3.60-5.2) 12/28/18 05:30 Hgb 12.0 GM/dL (10.7-15.3) 12/28/18 05:30 Hct 35.0 % (32.4-45.2) 12/28/18 05:30 MCV 87.0 fl (80-96) 12/28/18 05:30 MCHC 34.2 g/dl (32.0-36.0) 12/28/18 05:30 RDW 13.6 % (11.6-15.6) 12/28/18 05:30 Plt Count 250 K/MM3 (134-434) 12/28/18 05:30 Sodium 139 mmol/L (136-145) 12/28/18 05:30 Potassium 4.0 mmol/L (3.5-5.1) 12/28/18 05:30 Chloride 109 mmol/L (98-107) H 12/28/18 05:30 Carbon Dioxide 25 mmol/L (21-32) 12/28/18 05:30 Anion Gap 6 MMOL/L (8-16) L 12/28/18 05:30 BUN 10 mg/dL (7-18) 12/28/18 05:30 Creatinine 1.0 mg/dL (0.55-1.3) 12/28/18 05:30 Random Glucose 95 mg/dL (74-106) 12/28/18 05:30 Calcium 8.0 mg/dL (8.5-10.1) L 12/28/18 05:30 Blood Type A POSITIVE 12/27/18 14:05 Antibody Screen Negative 12/27/18 14:00 INR 1.06 (0.82-1.09) 12/27/18 11:56 US reviewed IMP: symptomatic biliary colic/acute cholecystitis/cholelithiasis PLAN: Lap magy possible open; r/b/t/a's d/w and informed consent obtained; all ?'s answered. Faraz Rider MD FACS
[2018-12-28] MEDS: ONDANSETRON 4 MG/2 ML VIAL IVPUSH PRN ×2 (13:20→18:07)
[2018-12-28 13:59] VITALS: BP 124/77; PULSE 69; TEMP 97.5
--- NOTE | 2018-12-28 14:48 | DS ---
"Physical Exam: SUBJECTIVE: Patient seen and examined OBJECTIVE: Vital Signs Period Temp Pulse Resp BP Sys/Ybarra Pulse Ox Last 24 Hr 97.2 F-98.5 F 59-80 16-20 110-141/63-92 99-100 PHYSICAL EXAM GENERAL: The patient is awake, alert, and fully oriented, in no acute distress. HEAD: Normal with no signs of trauma. EYES: PERRL, extraocular movements intact, sclera anicteric, conjunctiva clear. ENT: Ears normal, nares patent, oropharynx clear without exudates, moist mucous membranes. NECK: Trachea midline, full range of motion, supple. LUNGS: Breath sounds equal, clear to auscultation bilaterally, no wheezes, no crackles, no accessory muscle use. HEART: Regular rate and rhythm, S1, S2 without murmur, rub or gallop. ABDOMEN: Soft, nontender, nondistended, normoactive bowel sounds, no guarding, no rebound, no hepatosplenomegaly, no masses. EXTREMITIES: 2+ pulses, warm, well-perfused, no edema. NEUROLOGICAL: Cranial nerves II through XII grossly intact. Normal speech, gait not observed. PSYCH: Normal mood, normal affect. SKIN: Warm, dry, normal turgor, no rashes or lesions noted. LABS Laboratory Results - last 24 hr 12/27/18 12/27/18 12/28/18 14:00 14:05 05:30 WBC 4.6 RBC 4.03 Hgb 12.0 Hct 35.0 MCV 87.0 MCH 29.8 MCHC 34.2 RDW 13.6 Plt Count 250 MPV 7.9 Absolute Neuts (auto) 2.4 Neutrophils % 52.7 Lymphocytes % 34.2 D Monocytes % 6.5 Eosinophils % 5.9 H Basophils % 0.7 Nucleated RBC % 0 Sodium Potassium Chloride Carbon Dioxide Anion Gap BUN Creatinine Creat Clearance w eGFR Random Glucose Calcium Magnesium Total Bilirubin Direct Bilirubin AST ALT Alkaline Phosphatase Total Protein Albumin Blood Type A POSITIVE A POSITIVE Antibody Screen Negative 12/28/18 12/28/18 05:30 05:30 WBC RBC Hgb Hct MCV MCH MCHC RDW Plt Count MPV Absolute Neuts (auto) Neutrophils % Lymphocytes % Monocytes % Eosinophils % Basophils % Nucleated RBC % Sodium 139 Potassium 4.0 Chloride 109 H Carbon Dioxide 25 Anion Gap 6 L BUN 10 Creatinine 1.0 Creat Clearance w eGFR 58.00 Random Glucose 95 Calcium 8.0 L Magnesium 2.0 Total Bilirubin 0.3 Direct Bilirubin 0.1 AST 6 L ALT 38 Alkaline Phosphatase 99 Total Protein 8.1 Albumin 3.2 L Blood Type Antibody Screen HOSPITAL COURSE: Date of Admission:12/27/18 Date of Discharge: 12/28/18 Minutes to complete discharge: 35 Discharge Summary Reason For Visit: SYMPTOMATIC CHOLELITHIASIS Current Active Problems Epigastric pain (Acute) Symptomatic cholelithiasis (Acute) Condition: Fair - Instructions Diet, Activity, Other Instructions: Dr. Rider's POST-OPERATIVE Discharge Instructions Physical activity Resume your normal everyday activity as tolerated no heavy lifting or exercise until seen by your surgeon. You may walk unlimited amounts of and climb stairs. You may resume driving the car when you feel safe and comfortable behind the wheel. Wound care If you have a bandage, leave it on, and keep dry for 48-72 hours. After that time discard the outer bandage. If there are tapes on the skin under the outer bandage, leave them in place. They will peel off in the next 7 to 10 days. Do Not peel them off. You have a liquid bandage on your incisions, these will flake off on their own, when they begin to flake, do not pick at them, allow them to come off on their own. You may shower 2 days after surgery. When showering, allow soap and water to run over the incisions, do not scrub them, pat dry well after showering. If there are tapes present on the skin, they can get wet. Diet There are no dietary restrictions. Eat healthy, high-fiber foods. Drink 6 to 8 glasses of liquid each day. This will assist in keeping your bowels are regular. Pain management You may take Tylenol (Acetaminophen) or Ibuprofen (for example, Motrin, Advil etc.) Any pain prescription medication ordered should be taken as prescribed for moderate to severe pain. Do not drive, drink alcohol or operate heavy machinery while taking narcotic pain medications. Do not take Tylenol ( Acetaminophen) with your narcotic pain prescription if it contains Tylenol ( Acetaminophen). Call Dr. Rider for any of the following: Severe pain not relieved by medication Fever of 101 or higher Excessive bleeding or drainage on dressing Inability to urinate Call the office at [phone] for a post operative appointment in 7 - 10 days. [facility] This report was requested by: Jack Cam | Reference #: [id number] - Home Medications Comprehensive Discharge Medication List: Ambulatory Orders Levothyroxine Sodium [Synthroid] 112 mcg PO DAILY 06/09/17 Amlodipine Besylate [Norvasc -] 5 mg PO DAILY 12/27/18 Ranitidine HCl [Zantac] 150 mg PO DAILY 12/27/18 Tramadol HCl 50 mg PO Q6H PRN #30 tablet MDD 4 12/28/18 This patient is new to me today: No Emergency Visit: Yes Care time: The patient presented to the Emergency Department on the above date and was hospitalized for further evaluation of their emergent condition. Critical Care patient: No - Discharge Referral Referred to [facility] Med P.C.: No"
--- NOTE | 2018-12-29 17:27 | PATH ---
Surgical Pathology Report Patient Name: REBECCA SALGUERO Med. Rec. #: [id number] /Age/Gender: 1965 (Age: 53) / F Account: [id number] Location: [facility] MED-SURG Taken: 12/28/2018 Received: 12/28/2018 Reported: 12/29/2018 Physicians: Fabricio Quinn MD Specimen(s) Received GALLBLADDER AND CONTENTS Clinical History Symptomatic cholelithiasis Final Diagnosis GALLBLADDER AND CONTENTS, LAPAROSCOPIC CHOLECYSTECTOMY: ACUTE AND CHRONIC CHOLECYSTITIS WITH CHOLELITHIASIS. ONE BENIGN PERIDUCTAL LYMPH NODE (0/1). Electronically Signed Dacia Monet M.D. Gross Description Received in formalin, labeled "gallbladder and contents," is an 8.3 x 2.3 x 2.3 cm. gallbladder with a 0.2 cm. in length portion of cystic duct attached. There is a 1.2 cm greatest dimension periductal lymph node present. The outer surface is denis-pink and varies from smooth to shaggy. The lumen contains green, tenacious bile as well as a 1.6 cm in greatest dimension green, ovoid cholelith. The mucosa is green and focally eroded. The wall of the gallbladder ranges from 0.1-0.4 cm. in thickness. Senior Scientist sections are submitted in one cassette. /12/28/2018 saudi12/28/2018
== END 2018-12-28 18:30 | disposition home or self-care (01) ==
LOC: FASUSAT 18:04 → FM/S 18:04 → FASUSAT 18:04 → SUATTDRO 18:04 → FM/S 18:04 → FASUSAT 21:42
PROVIDERS: ATTEND Nurse Practitioner Acute Care
PROC: 0FT44ZZ Resection of Gallbladder, Percutaneous Endoscopic Approach (ICD-10-PCS; principal; 2018-12-28 07:55)
DX: K80.64 Calculus of gallbladder and bile duct with chronic cholecystitis without obstruction (principal); I10 Essential (primary) hypertension; E03.9 Hypothyroidism, unspecified
CPT/HCPCS: 36415; 71046-TC-FY; 76705-TC; 80048; 80053; 80076; 82550; 83690; 83735; 84484; 85025; 85610; 85730; 86850; 86900; 86901; 88304-TC; 93005; 94760; 97116-GP; 97161-GP; 99284-25; J7030

== ENCOUNTER 2020-11-13 18:46 | Emergency (ER) | payer BC, OTHER ==
[2020-11-13 19:14] VITALS: TEMP 98; BMI 25.3
[2020-11-13 22:01] VITALS: BP 164/73; PULSE 99
== END 2020-11-13 20:45 | disposition home or self-care (01) ==
LOC: JCOVINFU 18:46
DX: U07.1 COVID-19 (principal)
CPT/HCPCS: 71046-TC-FY; 99284-25; C9803; U0003

== ENCOUNTER 2022-03-25 20:35 | Emergency (ER) | payer BC ==
[2022-03-25 20:55] VITALS: BMI 28.3
[2022-03-25] MEDS ORDERED: ALPRAZolam 1 MG TABLET PO PRN (21:05)
[2022-03-25] MEDS ORDERED: ALPRAZolam 0.25 MG TABLET ONE (21:06)
[2022-03-25] MEDS ORDERED: risperiDONE 1 MG TABLET ONE (21:33)
[2022-03-25] MEDS ORDERED: risperiDONE 2 MG TABLET PO ONE (21:33)
[2022-03-25 21:51] VITALS: BP 117/69; PULSE 100; TEMP 98.1
== END 2022-03-25 21:56 | disposition home or self-care (01) ==
LOC: FER 20:35
DX: R00.2 Palpitations (principal)
CPT/HCPCS: 93005; 99283-25